=== PATIENT | female | born 1990 | race Caucasian/White ===

== ENCOUNTER 2016-04-07 10:53 | Emergency (ER) | payer MEDICAID ==
--- NOTE | 2016-04-07 11:04 | Emergency Department Record ---
History of Present Illness - General Chief Complaint: Suicidal thoughts Stated Complaint: THOUGHTS OF HURTING HERSELF Time Seen by Provider: 04/07/16 11:03 Source: Patient Mode of Arrival: Ambulatory Limitations: No limitations Travel/Exposure to [place] Within 21 Days of Symptoms: No - History of Present Illness Initial Comments: The patient is here due to feeling depressed and suicidal for the last week. She states she has thought of ways to hurt herself and would like to get help. She denies any overdose, any recent illnesses or injuries. The patient states she has a long hx of depression and used to be on medicine for it. MD Complaint: Feels depressed, Suicidal ideation -: Unknown Associated Psychiatric Symptoms: Suicidal ideation History of same: Yes Quality: Intermittent Improves With: None Worsens With: None Associated Symptoms: Denies other symptoms Treatments Prior to Arrival: None If Self Harm: Admits thoughts of self harm Details of Plan: Wanted to get in car and crash it - Related Data Home Medications Medication Instructions Recorded Confirmed Last Taken No Home Med [NO HOME MEDS] 04/07/16 04/07/16 Unknown Allergies Allergy/AdvReac Type Severity Reaction Status Date / Time Penicillins Allergy HIVES Verified 09/08/15 19:50 Review of Systems Constitutional: Denies: Chills, Fever Eyes: Denies: Eye discharge ENT: Denies: Congestion Respiratory: Denies: Cough, Dyspnea Past Medical History - SOCIAL HISTORY Smoking Status: Current every day smoker Alcohol Use: Occassional Drug Use: None - RESPIRATORY Hx Respiratory Disorders: No - CARDIOVASCULAR Hx Cardio Disorders: No - NEURO Hx Neuro Disorders: No - GI Hx GI Disorders: No - Hx Genitourinary Disorders: No - ENDOCRINE Hx Endocrine Disorders: No - MUSCULOSKELETAL Comment:: Hydrotissuperateva* (skin issue), Dejenerative Disc Disease - PSYCH Hx Psych Problems: Yes Hx Depression: Yes - HEMATOLOGY/ONCOLOGY Hx Hematology/Oncology Disorders: No Family Medical History Any Significant Family History?: Yes Hx Cancer: Mother Hx Diabetes: Grandparents Hx Heart Disease: Grandparents Physical Exam - General General Appearance: Alert, Oriented x3, Cooperative, No acute distress - Head Head exam: Atraumatic, Normocephalic, Normal inspection - Eye Eye exam: Normal appearance, PERRL - ENT Throat exam: Normal inspection. negative: Tonsillar erythema, Tonsillar exudate - Neck Neck exam: Normal inspection, Full ROM. negative: Tenderness - Respiratory Respiratory exam: Normal lung sounds bilaterally. negative: Respiratory distress - Cardiovascular Cardiovascular Exam: Regular rate, Normal rhythm, Normal heart sounds - GI/Abdominal GI/Abdominal exam: Soft, Normal bowel sounds. negative: Tenderness - Extremities Extremities exam: Normal inspection, Full ROM, Normal capillary refill. negative: Tenderness - Neurological Neurological exam: Alert, Normal gait. negative: Abnormal gait, Motor sensory deficit Course Vital Signs 04/07/16 10:59 Pulse Rate 68 Respiratory 20 Rate Blood Pressure 132/76 Pulse Ox 98 - Reevaluation(s) Reevaluation #1: The patient is doing very well and is resting comfortably. She denies any problems or new issues. 04/07/16 12:19 Reevaluation #2: I did discuss the patient with the deputy insurance commissioner at [facility] and she is accepted for transfer. 04/07/16 13:57 Medical Decision Making - Data Complexity MDM Data: Labs Ordered and/or Reviewed - Lab Data Result diagrams: 04/07/16 11:34 04/07/16 11:34 Disposition Disposition: Transfer Clinical Impression: Suicidal ideation Disposition: Acute Care Hospital Transfer Transfer To: [facility] Reason For Transfer: Psych. Accepting Physician: Dr. Badillo Time Discussed w/Accepting Physician: 12:44 Condition: (2) Stable Forms: Patient Portal Access Time of Disposition: 12:45
[2016-04-07 11:36] LABS: BASO % 0.3 % (0-6); EOS % 2.9 % (0-6); GRAN % 62.1 % (47-80); HEMATOCRIT 39.9 % (35.0-47.0); HEMOGLOBIN 13.5 gm/dl (11.6-16.0); LYMPH % 25.3 % (16-45); MEAN CELL VOLUME 91.1 fl (81-97); MEAN CORPUSCULAR HEMOGLOBIN 30.8 pg (27-33); MEAN CORPUSCULAR HGB CONC 33.8 g/dl (32-36); MEAN PLATELET VOLUME 11.3 fl (7.4-10.4); MONO % 9.4 % (0-9); PLATELET COUNT 312 K/uL (130-400); RED BLOOD COUNT 4.38 M/uL (3.80-5.40); WHITE BLOOD COUNT W/O DIFF 9.6 K/uL (4.2-12.2)
[2016-04-07 11:38] LABS: AMPHETAMINE SCREEN URINE NOT DETECTED; BARBITURATE SCREEN URINE NOT DETECTED; BENZODIAZEPINE SCREEN URINE NOT DETECTED; COCAINE SCREEN URINE NOT DETECTED; METHADONE SCREEN URINE NOT DETECTED; METHAMPHETAMINE SCREEN NOT DETECTED; OPIATE SCREEN URINE NOT DETECTED; OXYCODONE SCREEN URINE NOT DETECTED; PHENCYCLIDINE SCREEN URINE NOT DETECTED; PROPOXYPHENE SCREEN URINE NOT DETECTED; THC SCREEN URINE NOT DETECTED; TRICYCLIC ANTIDEPRESSANT SCRN NOT DETECTED
[2016-04-07 11:48] LABS: ALB/GLOB RATIO 1.3 (1.1-1.8); ALKALINE PHOSPHATASE 75 U/L (38-126); ALT/SGPT 30 U/L (9-52); ANION GAP 14.1 (7-16); AST/SGOT 17 U/L (14-36); BLOOD UREA NITROGEN 7 mg/dL (7-17); CARBON DIOXIDE 20.9 mmol/L (22-30); CREATININE 0.7 mg/dL (0.52-1.04); EST GLOMERULAR FILTRATION RATE > 60 ml/min; GLUCOSE,RANDOM 95 mg/dL (70-110); TOTAL PROTEIN 7.1 gm/dL (6.3-8.2)
[2016-04-07 11:49] LABS: ACETAMINOPHEN < 10.0 ug/mL (10.0-30.0); SALICYLATE < 1.0 mg/dL (2.8-20.0)
== END 2016-04-07 14:14 | disposition short-term general hospital (02) ==
LOC: ER 10:53
DX: R45.851 Suicidal ideations (principal); F32.9 Major depressive disorder, single episode, unspecified
CPT/HCPCS: 99285 ×2; 85025; 80053; 81025; G0477; G0480 ×2; 80329

== ENCOUNTER 2016-06-24 07:59 | Emergency (ER) | payer MEDICAID ==
--- NOTE | 2016-06-24 08:16 | Emergency Department Record ---
History of Present Illness - General Chief Complaint: Back Pain/Injury Stated Complaint: BACK PAIN Time Seen by Provider: 06/24/16 08:08 Source: Patient Mode of Arrival: Ambulatory Limitations: Physical limitation - History of Present Illness Initial Comments: 25 yo female presents with back pain that started yesterday. The pain is mostly on the right side. 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 No fever. No trauma. No recent surgery or procedures. No numbness, tingling or changes in bowel or bladder function. She has discomfort with moving or changes in position. No hematuria. The pain radiates to the right buttocks. No pain beyond that. MD Complaint: Back pain Onset/Timin -: Days(s) Similar Symptoms Previously: Yes Place: Home Radiation: Right leg Severity: Mild Severity scale (1-10): 5 Quality: Sharp Consistency: Constant Improves With: None Worsens With: Movement, Other Context: Unknown Associated Symptoms: Denies other symptoms Treatments Prior to Arrival: Acetaminophen - Related Data Home Medications Medication Instructions Recorded Confirmed Last Taken Acetaminophen with Codeine 1 tab PO ASDIR PRN 06/24/16 06/24/16 Unknown [Acetaminophen-Cod #3 Tablet] Clindamycin HCl [Clindamycin HCl] 300 mg PO TID 06/24/16 06/24/16 Unknown Escitalopram Oxalate [Lexapro] 20 mg PO DAILY 06/24/16 06/24/16 Unknown Ibuprofen [Ibuprofen] 800 mg PO Q8H 06/24/16 06/24/16 Unknown Previous Rx's Medication Instructions Recorded Lidocaine Patch [Lidoderm] 1 ea TOP DAILY #7 patch 06/24/16 Methylprednisolone [Medrol Dose 4 mg PO DAILY #1 tab.ds.pk 06/24/16 Pack] Allergies Allergy/AdvReac Type Severity Reaction Status Date / Time Penicillins Allergy HIVES Verified 09/08/15 19:50 Travel Screening - Travel/Exposure Within Last 30 Days Have you traveled within the last 30 days?: No Review of Systems Constitutional: Denies: Chills, Fever, Malaise, Weakness Eyes: Denies: Eye discharge, Eye pain, Photophobia, Vision change ENT: Denies: Congestion, Throat pain Respiratory: Denies: Cough, Dyspnea, Hemoptysis, Stridor, Wheezes Cardiovascular: Denies: Chest pain, Palpitations, Syncope Endocrine: Denies: Fatigue Gastrointestinal: Denies: Abdominal pain, Diarrhea, Nausea, Vomiting Genitourinary: Denies: Dysuria, Incontinence, Retention, Urgency Musculoskeletal: Reports: As per HPI, Back pain. Denies: Neck pain Skin: Denies: Bruising, Change in color, Rash Neurological: Denies: Headache Psychiatric: Denies: Anxiety Hematological/Lymphatic: Denies: Blood Clots, Easy bleeding, Easy bruising, Swollen glands Past Medical History - SOCIAL HISTORY Smoking Status: Current every day smoker Alcohol Use: Rare Drug Use: None - RESPIRATORY Hx Respiratory Disorders: No - CARDIOVASCULAR Hx Cardio Disorders: No - NEURO Hx Neuro Disorders: No - GI Hx GI Disorders: No - Hx Genitourinary Disorders: No - ENDOCRINE Hx Endocrine Disorders: No - MUSCULOSKELETAL Hx Musculoskeletal Disorders: Yes Comment:: Hydrotissuperateva* (skin issue), Dejenerative Disc Disease - PSYCH Hx Psych Problems: Yes Hx Depression: Yes - HEMATOLOGY/ONCOLOGY Hx Hematology/Oncology Disorders: No Family Medical History Any Significant Family History?: Yes Hx Cancer: Mother Hx Diabetes: Grandparents Hx Heart Disease: Grandparents Physical Exam - General General Appearance: Alert, Oriented x3, Cooperative, No acute distress Limitations: No limitations - Head Head exam: Normal inspection - Eye Eye exam: Normal appearance, PERRL. negative: Conjunctival injection, Periorbital swelling - ENT ENT exam: Normal exam Ear exam: Normal external inspection Nasal Exam: Normal inspection Mouth exam: Normal external inspection Teeth exam: Normal inspection Throat exam: Normal inspection - Neck Neck exam: Normal inspection - Respiratory Respiratory exam: Normal lung sounds bilaterally. negative: Respiratory distress - Cardiovascular Cardiovascular Exam: Regular rate, Normal rhythm, Normal heart sounds - GI/Abdominal GI/Abdominal exam: Soft. negative: Distended, Tenderness - Rectal Rectal exam: Deferred - exam: Deferred - Extremities Extremities exam: Normal inspection, Full ROM, Normal capillary refill. negative: Calf tenderness, Pedal edema, Tenderness - Back Back exam: Reports: Normal inspection, Full ROM, Muscle spasm, Paraspinal tenderness (low right), Tenderness. Denies: CVA tenderness (R), CVA tenderness (L), Vertebral tenderness Image of Body Front/Back: 1 - tender to palpation, normal inspection, no rash. no mass - Neurological Neurological exam: Alert, Normal gait, Oriented X3, Reflexes normal (patella +2 bilateral and symmetric, achilles +2 bilateral and symmetric). negative: Altered, Motor sensory deficit - Psychiatric Psychiatric exam: Normal affect, Normal mood - Skin Skin exam: Dry, Intact, Normal color, Warm. negative: Cyanosis, Diaphoretic, Erythema Course Vital Signs 06/24/16 08:02 Temperature 98.3 F Pulse Rate 88 Respiratory 18 Rate Blood Pressure 115/84 Pulse Ox 95 - Reevaluation(s) Reevaluation #1: EMR reviewed 2 prior visits 06/24/16 08:18 Reevaluation #2: Prior XR reviewed from [facility] 11/2015 Mild lumbar degenerative changes with mild narrowing 06/24/16 08:29 Reevaluation #3: MRI 2009 small posterior central right paracentral disc extrusion at L4-5 Degen at L4-5 06/24/16 08:33 Reevaluation #4: DC with instructions for home care, follow up and reasons to return No signs of acute neurologic issues at this time. 06/24/16 08:57 Disposition Disposition: Discharge Clinical Impression: Sciatica of right side Disposition: Home, Self-Care Condition: (1) Good Instructions: Low Back Strain (ED), Sciatica (ED) Additional Instructions: Call your doctor for close follow up and evaluation of your back pain You may require additional referral if not improved (physical therapy) Return if weak, numb, uncontrolled pain, changes in your bowel or bladder function Prescriptions: Lidocaine Patch [Lidoderm] 1 ea TOP DAILY #7 patch Methylprednisolone [Medrol Dose Pack] 4 mg PO DAILY #1 tab.ds.pk Forms: Patient Portal Access Time of Disposition: 08:20
[2016-06-24] MEDS ORDERED: ORPHENADRINE CITRATE 60MG/2ML VIAL IM ONE (08:17)
[2016-06-24] MEDS ORDERED: HYDROCODONE/APAP 7.5/325MG TABLET PO ONE (08:17)
[2016-06-24] MEDS ORDERED: LIDOCAINE 5% PATCH TOP ONE (08:22)
== END 2016-06-24 09:16 | disposition home or self-care (01) ==
LOC: ER 07:59
DX: M51.17 Intervertebral disc disorders with radiculopathy, lumbosacral region (principal)
CPT/HCPCS: 96372; 99283; 99284; J2360

== ENCOUNTER 2017-01-31 17:25 | Emergency (ER) | payer MEDICAID ==
[2017-01-31] MEDS ORDERED: NAPROXEN 250 MG TABLET PO ONE (18:31)
--- NOTE | 2017-01-31 18:35 | Emergency Department Record ---
History of Present Illness - General Chief complaint: Extremity Problem Stated complaint: LT SHOULDER PAIN Time Seen by Provider: 01/31/17 18:30 Source: Patient Mode of Arrival: Ambulatory Limitations: No limitations - History of Present Illness Initial comments: 26 yo female presents to ED for evaluation of left shoulder pain that began 1.5 hours ago. Patient reports that she was carrying a laundry basket when her pain symptoms began, describes the pain as "sharp". Patient denies traumatic injury or dislocation symptoms, denies pain distal to the shoulder, and denies numbness, tingling, or weakness of the hand distally. Patient has not taken anything for pain prior to arrival. MD Complaint: Joint pain Onset/Timin -: Hour(s) Location: Left, Shoulder History of Same: Yes Radiation: Distal Severity scale (1-10): 4 Quality: Sharp Consistency: Constant Improves with: Nothing Worsens with: Nothing Associated Symptoms: Denies other symptoms - Related Data Previous Rx's Medication Instructions Recorded Naproxen [Naprosyn] 500 mg PO Q12H #30 tab 01/31/17 Allergies Allergy/AdvReac Type Severity Reaction Status Date / Time Penicillins Allergy HIVES Verified 09/08/15 19:50 Travel Screening - Travel/Exposure Within Last 30 Days Have you traveled within the last 30 days?: No Review of Systems Constitutional: Denies: Chills, Fever, Malaise, Night sweats Eyes: Denies: Eye discharge, Eye pain ENT: Denies: Congestion, Ear pain, Epistaxis Respiratory: Denies: Cough, Dyspnea Cardiovascular: Denies: Chest pain, Dyspnea on exertion Endocrine: Denies: Fatigue, Heat or cold intolerance Gastrointestinal: Denies: Abdominal pain, Nausea, Vomiting Genitourinary: Denies: Incontinence, Retention Musculoskeletal: Reports: Arthralgia. Denies: Back pain, Gout, Joint swelling Skin: Denies: Bruising, Change in color Neurological: Denies: Abnormal gait, Confusion, Headache, Tingling Psychiatric: Denies: Anxiety Hematological/Lymphatic: Denies: Anemia, Blood Clots Past Medical History - SOCIAL HISTORY Smoking Status: Current every day smoker Alcohol Use: None Drug Use: None - RESPIRATORY Hx Respiratory Disorders: No - CARDIOVASCULAR Hx Cardio Disorders: No - NEURO Hx Neuro Disorders: No - GI Hx GI Disorders: No - Hx Genitourinary Disorders: No - ENDOCRINE Hx Endocrine Disorders: No - MUSCULOSKELETAL Hx Musculoskeletal Disorders: Yes Comment:: Hydrotissuperateva* (skin issue), Dejenerative Disc Disease - PSYCH Hx Psych Problems: Yes Hx Depression: Yes - HEMATOLOGY/ONCOLOGY Hx Hematology/Oncology Disorders: No Family Medical History Any Significant Family History?: Yes Hx Cancer: Mother Hx Diabetes: Grandparents Hx Heart Disease: Grandparents Physical Exam - General General Appearance: Alert, Oriented x3, Cooperative, Mild distress Limitations: No limitations - Head Head exam: Atraumatic, Normocephalic, Normal inspection Head exam detail: negative: Abrasion, Contusion, Weiss's sign, General tenderness, Hematoma, Laceration - Eye Eye exam: Normal appearance. negative: Conjunctival injection, Periorbital swelling, Periorbital tenderness, Scleral icterus - ENT Ear exam: negative: Auricular hematoma, Auricular trauma Nasal Exam: negative: Active bleeding, Discharge, Dried blood, Foreign body Mouth exam: negative: Drooling, Laceration, Muffled voice, Tongue elevation - Neck Neck exam: Normal inspection. negative: Meningismus, Tenderness - Respiratory Respiratory exam: Normal lung sounds bilaterally. negative: Respiratory distress, Rhonchi, Stridor, Wheezes - Cardiovascular Cardiovascular Exam: Regular rate, Normal rhythm, Normal heart sounds - GI/Abdominal GI/Abdominal exam: Soft. negative: Distended, Rebound, Rigid, Tenderness - Rectal Rectal exam: Deferred - exam: Deferred - Extremities Extremities exam: Tenderness, Other (TTP to the anterior/posterior left shoulder on examination, FROM of the elbow, wrist and hand, pain with ROM of the shoulder. No evidence for dislocation, strong distal radial pulse. Care Nurse Rn strenth 5/5 on examination.). negative: Calf tenderness, Pedal edema - Neurological Neurological exam: Alert, Oriented X3. negative: Motor sensory deficit - Psychiatric Psychiatric exam: Normal affect, Normal mood - Skin Skin exam: Normal color. negative: Abrasion Type of lesion: negative: abrasion Course Vital Signs 01/31/17 17:31 Temperature 98.6 F Pulse Rate 85 Respiratory 20 Rate Blood Pressure 127/70 Pulse Ox 98 - Reevaluation(s) Reevaluation #1: 01/31/17 19:17 Left shoulder: No acute abnormality Patient was updated on her radiology results, will place in a sling with instructions to follow-up with her PCP in 5-7 days for further evaluation to determine the need for PT vs. MRI of the shoulder. Patient verbalizes understanding of all instructions and appears stable for discharge at this time. Disposition Disposition: Discharge Clinical Impression: Left shoulder strain Qualifiers: Encounter type: initial encounter Qualified Code(s): S46.912A - Strain of unspecified muscle, fascia and tendon at shoulder and upper arm level, left arm , initial encounter Disposition: Home, Self-Care Condition: (2) Stable Instructions: Shoulder Sprain (ED) Additional Instructions: Return to ED if your symptoms worsen or if you have any concerns. Sling as directed. Naprosyn as directed. Follow-up with your family doctor in 5-7 days for further evaluation of your pain symptoms. Prescriptions: Naproxen [Naprosyn] 500 mg PO Q12H #30 tab.dr Forms: Patient Portal Access Time of Disposition: 19:21 Quality - Quality Measures Quality Measures: N/A - Blood Pressure Screening Does Patient Have Any of the Following: No Blood Pressure Classification: Pre-Hypertensive BP Reading Systolic Measurement: 127 Diastolic Measurement: 70 Screening for High Blood Pressure: < Pre-Hypertensive BP, F/U Documented > [ G8950] Pre-Hypertensive Follow-up Interventions: Referral to alternative/primary care provider.
--- NOTE | 2017-02-02 08:20 | RADIOLOGY REPORT ---
DATE: 01/31/2017 at 1840. EXAM: LEFT SHOULDER, COMPLETE. HISTORY: Left shoulder pain after carrying laundry. TECHNIQUE: Internal and external humerus rotation AP views of the left shoulder are obtained as well as a scapular Y view. COMPARISON: None. ENCOUNTER: Initial. FINDINGS: There is normal bone mineralization. No fracture, dislocation, or destructive bone lesion is seen. The articular relations are maintained. No focal soft tissue abnormality is demonstrated. IMPRESSION: NORMAL LEFT SHOULDER. JOB NUMBER: [id number] [facility]
== END 2017-01-31 19:32 | disposition home or self-care (01) ==
LOC: ER 17:25
DX: S46.912A Strain of unspecified muscle, fascia and tendon at shoulder and upper arm level, left arm, initial encounter (principal); X50.9XXA Other and unspecified overexertion or strenuous movements or postures, initial encounter; Y93.E2 Activity, laundry
CPT/HCPCS: 99283

== ENCOUNTER 2017-12-25 14:00 | Emergency (ER) | payer MEDICAID ==
[2017-12-25] MEDS ORDERED: ACETAMINOPHEN 325 MG TAB PO ONE (14:50)
--- NOTE | 2017-12-25 14:54 | Emergency Department Record ---
History of Present Illness - General Chief Complaint: Dizziness Stated Complaint: SHAKES,HEADACHE,FACE IS JENNIFER Time Seen by Provider: 12/25/17 14:28 Source: Patient Mode of Arrival: Ambulatory Limitations: No limitations - History of Present Illness Initial Comments: The patient is here due to mild dizziness for an hour prior to presenting here at [facility] in the ER. She states she did wake up with a mild posterior head and neck pain that has mildly worsened during the day gradually. Also about an hour ago she felt a tingling sensation over both sides of her face. She denies any visual changes, neck pain with ROM, nausea, vomiting, diarrhea or fevers. The patient has had similar issues with anxiety in the past. The patient did drive here with no difficulty. MD Complaint: Dizziness Onset/Timin -: Hour(s) Timing: Sudden onset Description: Lightheadedness History of Same: No History of Trauma: No Severity: Mild Improves With: Nothing Worsens With: Nothing Associated Symptoms: Other - Fidelia Coma Scale Eye Response: (4) Open spontaneously Motor Response: (6) Obeys commands Verbal Response: (5) Oriented Fidelia Total: 15 - Related Data Home Medications Medication Instructions Recorded Confirmed Last Taken Duloxetine HCl [Cymbalta] 30 mg PO DAILY 12/25/17 12/25/17 Unknown Famotidine 40 mg PO DAILY 12/25/17 12/25/17 Unknown Tizanidine HCl 2 mg PO QHS 12/25/17 12/25/17 Unknown Previous Rx's Medication Instructions Recorded Naproxen [Naprosyn] 250 mg PO BID #14 tablet 12/25/17 Allergies Allergy/AdvReac Type Severity Reaction Status Date / Time Penicillins Allergy HIVES Verified 12/25/17 14:27 Travel Screening - Travel/Exposure Within Last 30 Days Have you traveled within the last 30 days?: No - Travel/Exposure Within Last Year Have you traveled outside the [place] in the last year?: No - Additonal Travel Details Have you been exposed to anyone with a communicable illness?: No - Travel Symptoms Symptom Screening: None Review of Systems Constitutional: Denies: Chills, Fever Eyes: Denies: Eye discharge ENT: Denies: Congestion Respiratory: Denies: Cough, Dyspnea Past Medical History - SOCIAL HISTORY Smoking Status: Current every day smoker Alcohol Use: Rare Drug Use: None - RESPIRATORY Hx Respiratory Disorders: No - CARDIOVASCULAR Hx Cardio Disorders: No - NEURO Hx Neuro Disorders: No - GI Hx GI Disorders: No - Hx Genitourinary Disorders: No - ENDOCRINE Hx Endocrine Disorders: No - MUSCULOSKELETAL Hx Musculoskeletal Disorders: Yes Hx Arthritis: Yes Comment:: Hydrotissuperateva* (skin issue), Dejenerative Disc Disease - PSYCH Hx Psych Problems: Yes Hx Anxiety: Yes Hx Depression: Yes - HEMATOLOGY/ONCOLOGY Hx Hematology/Oncology Disorders: No Family Medical History Any Significant Family History?: Yes Hx Cancer: Mother Hx Diabetes: Grandparents Hx Heart Disease: Grandparents Physical Exam - General General Appearance: Alert, Oriented x3, Cooperative, No acute distress (The patient appears very comfortable while texting on her phone in no distress.) - Head Head exam: Atraumatic, Normocephalic, Normal inspection - Eye Eye exam: Normal appearance, PERRL, EOMI - ENT Throat exam: Normal inspection. negative: Tonsillar erythema, Tonsillar exudate - Neck Neck exam: Normal inspection, Full ROM, Tenderness (Palpation of the superior posterior cervical muscles exactly reproduces the patient's pain.). negative: Meningismus (The neck is very supple.) - Respiratory Respiratory exam: Normal lung sounds bilaterally. negative: Respiratory distress - Cardiovascular Cardiovascular Exam: Regular rate, Normal rhythm, Normal heart sounds - GI/Abdominal GI/Abdominal exam: Soft, Normal bowel sounds. negative: Tenderness - Extremities Extremities exam: Normal inspection, Full ROM, Normal capillary refill. negative: Tenderness - Neurological Neurological exam: Alert, CN II-XII intact, Normal gait, Oriented X3, Reflexes normal, Other (Neg Drift and [place]omberg.). negative: Abnormal gait, Altered, Motor sensory deficit Course Vital Signs 12/25/17 14:17 Temperature 98.3 F Pulse Rate 80 Respiratory 17 Rate Blood Pressure 124/83 Pulse Ox 98 - Reevaluation(s) Reevaluation #1: The patient is doing a lot better at this time. Her RO is MUCH improved and her facial tingling is almost gone. 12/25/17 15:56 Reevaluation #2: The patient is doing a lot better at this time. Her dizziness and bilateral facial tingling sensation have resolved. She is feeling much improved and is ready for home. 12/25/17 16:10 12/25/17 16:13 Medical Decision Making - Data Complexity MDM Data: Labs Ordered and/or Reviewed - Lab Data Result diagrams: 12/25/17 15:00 12/25/17 15:00 Disposition Disposition: Discharge Clinical Impression: Headache Qualifiers: Headache type: unspecified Headache chronicity pattern: unspecified pattern Intractability: not intractable Qualified Code(s): R51 - Headache Disposition: Home, Self-Care Condition: (2) Stable Instructions: Dizziness (ED) Additional Instructions: Please continue your regular medicines and add the Naprosyn for pain. Please see your family doctor for recheck in 2-3 days. Please return to the ER for any worsening symptoms. Prescriptions: Naproxen [Naprosyn] 250 mg PO BID #14 tablet Forms: Patient Portal Access Time of Disposition: 16:12 Quality - Quality Measures Quality Measures: N/A - Blood Pressure Screening View Details: Yes Does Patient Have Any of the Following: No Blood Pressure Classification: Pre-Hypertensive BP Reading Systolic Measurement: 124 Diastolic Measurement: 83 Screening for High Blood Pressure: < Pre-Hypertensive BP, F/U Documented > [ G8950] Pre-Hypertensive Follow-up Interventions: Referral to alternative/primary care provider.
[2017-12-25 15:07] LABS: BASO % 0.4 % (0-6); EOS % 4.1 % (0-6); HEMOGLOBIN 12.4 gm/dl (11.6-16.0); LYMPH % 29.3 % (16-45); MEAN CELL VOLUME 89.4 fl (81-97); MEAN CORPUSCULAR HEMOGLOBIN 29.2 pg (27-33); MEAN CORPUSCULAR HGB CONC 32.6 g/dl (32-36); MEAN PLATELET VOLUME 11.3 fl (7.4-10.4); MONO % 10.2 % (0-9); PLATELET COUNT 349 K/uL (130-400); RED BLOOD COUNT 4.25 M/uL (3.80-5.40); RED CELL DISTRIBUTION WIDTH 14.3 % (11.5-14.5); URINE APPEARANCE CLEAR; URINE BILIRUBIN NEGATIVE (NEGATIVE); URINE BLOOD NEGATIVE (NEGATIVE); URINE COLOR YELLOW; URINE GLUCOSE (UA) NEGATIVE (NEGATIVE); URINE KETONE NEGATIVE (NEGATIVE); URINE LEUKOCYTE ESTERASE TRACE (NEGATIVE); URINE NITRITE NEGATIVE (NEGATIVE); URINE PROTEIN NEGATIVE (NEGATIVE); URINE UROBILINOGEN 0.2 E.U./dL (0.20 - 1.00); WHITE BLOOD COUNT W/O DIFF 11.2 K/uL (4.2-12.2)
[2017-12-25 15:11] LABS: AMPHETAMINE SCREEN URINE NOT DETECTED; BARBITURATE SCREEN URINE NOT DETECTED; BENZODIAZEPINE SCREEN URINE NOT DETECTED; COCAINE SCREEN URINE NOT DETECTED; METHADONE SCREEN URINE NOT DETECTED; METHAMPHETAMINE SCREEN NOT DETECTED; OPIATE SCREEN URINE NOT DETECTED; OXYCODONE SCREEN URINE NOT DETECTED; PHENCYCLIDINE SCREEN URINE NOT DETECTED; PROPOXYPHENE SCREEN URINE NOT DETECTED; THC SCREEN URINE NOT DETECTED; TRICYCLIC ANTIDEPRESSANT SCRN NOT DETECTED
[2017-12-25 15:15] LABS: HCG,QUALITATIVE URINE NEGATIVE (NEGATIVE); URINE RBC NONE SEEN (NONE SEEN); URINE WBC 0 - 2 (0-2/hpf)
[2017-12-25 15:16] LABS: BLOOD UREA NITROGEN 9 mg/dL (6-20); CREATININE 0.6 mg/dL (0.5-0.9); EST GLOMERULAR FILTRATION RATE > 60 mL/min
[2017-12-25 15:17] LABS: TOTAL PROTEIN 6.9 g/dL (6.6-8.7)
[2017-12-25 15:19] LABS: GLUCOSE,RANDOM 78 mg/dL (74-109)
[2017-12-25 15:22] LABS: ALB/GLOB RATIO 1.2 (1.1-1.8); ALBUMIN 3.7 g/dL (4.0-5.0); ALKALINE PHOSPHATASE 73 U/L (35-104); ALT/SGPT 16 U/L (<33); AST/SGOT 13 U/L (10.0-35.0)
[2017-12-25] MEDS ORDERED: KETOROLAC 30 MG/ML VIAL IM ONE (15:29)
== END 2017-12-25 16:20 | disposition home or self-care (01) ==
LOC: ER 14:00
DX: R51 Headache (principal); R20.2 Paresthesia of skin; R42 Dizziness and giddiness; M54.2 Cervicalgia; F17.210 Nicotine dependence, cigarettes, uncomplicated
CPT/HCPCS: 81001; 99283; 96372; 99284; 85025; 80053; 81025; 80305; J1885

== ENCOUNTER 2018-09-04 12:54 | Emergency (ER) | payer MEDICAID ==
--- NOTE | 2018-09-04 13:03 | Emergency Department Record ---
History of Present Illness - General Chief complaint: Extremity Problem Stated complaint: LT WRIST PAIN/HAND NUMBNESS Time Seen by Provider: 09/04/18 12:57 Source: Patient Mode of Arrival: Ambulatory Limitations: No limitations - History of Present Illness Initial comments: 27 yo female presents with left hand pain and some numbness. The onset was Mon. She denies any specific injury but she did start a new job three weeks ago. She also mowed and noticed it after that. She is left handed. No weakness. No history of wrist surgery. No swelling. It spares the 5th finger. No warmth or redness. No abnormal coolness. MD Complaint: Joint pain -: Days(s) Location: Left History of Same: Yes -: Yes Arthralgia, Yes Myalgia Radiation: Distal Quality: Aching Consistency: Constant Improves with: Elevation Worsens with: Palpation, Weight bearing, Other (worse at night) - Related Data Previous Rx's Medication Instructions Recorded Naproxen [Naprosyn] 250 mg PO BID #14 tablet 12/25/17 Allergies Allergy/AdvReac Type Severity Reaction Status Date / Time Penicillins Allergy HIVES Verified 09/04/18 12:59 Review of Systems Constitutional: Denies: Chills, Fever, Malaise, Weakness Eyes: Denies: Eye discharge ENT: Denies: Congestion, Throat pain Respiratory: Denies: Cough Cardiovascular: Denies: Chest pain Endocrine: Denies: Fatigue Gastrointestinal: Denies: Abdominal pain, Diarrhea, Nausea, Vomiting Genitourinary: Denies: Dysuria, Urgency Musculoskeletal: Reports: Arthralgia, Myalgia Skin: Denies: Bruising, Change in color, Rash Neurological: Reports: Numbness, Tingling. Denies: Confusion, Headache, Tremors, Vertigo, Weakness Psychiatric: Denies: Anxiety Hematological/Lymphatic: Denies: Easy bleeding, Easy bruising Past Medical History - SOCIAL HISTORY Smoking Status: Current every day smoker Drug Use: None - RESPIRATORY Hx Respiratory Disorders: No - CARDIOVASCULAR Hx Cardio Disorders: No - NEURO Hx Neuro Disorders: No - GI Hx GI Disorders: No - Hx Genitourinary Disorders: No - ENDOCRINE Hx Endocrine Disorders: No - MUSCULOSKELETAL Hx Musculoskeletal Disorders: Yes Hx Arthritis: Yes Comment:: Hydrotissuperateva* (skin issue), Dejenerative Disc Disease - PSYCH Hx Psych Problems: Yes Hx Anxiety: Yes Hx Depression: Yes - HEMATOLOGY/ONCOLOGY Hx Hematology/Oncology Disorders: No Family Medical History Hx Cancer: Mother Hx Diabetes: Grandparents Hx Heart Disease: Grandparents Physical Exam - General General Appearance: Alert, Oriented x3, Cooperative, No acute distress Limitations: No limitations - Head Head exam: Atraumatic, Normal inspection - Eye Eye exam: Normal appearance. negative: Conjunctival injection - ENT ENT exam: Normal exam Ear exam: Normal external inspection Nasal Exam: Normal inspection Mouth exam: Normal external inspection - Neck Neck exam: Normal inspection - Cardiovascular Cardiovascular Exam: Regular rate, Normal rhythm, Normal heart sounds. negative: Diastolic murmur, Systolic murmur Peripheral Pulses: 2+: Radial (L) - Rectal Rectal exam: Deferred - exam: Deferred - Extremities Extremities exam: Normal inspection, Full ROM, Normal capillary refill, Tenderness (mid hand/distal wrist), Other (pest control worker helper intact, OK sign strength intact, finger abduction intact, wrist flex-ex intact, normal inspection, sensation intact al fingers, warm, pink with brisk CR.) - Neurological Neurological exam: Alert, Oriented X3. negative: Altered, Motor sensory deficit - Psychiatric Psychiatric exam: Normal affect, Normal mood - Skin Skin exam: Dry, Intact, Normal color, Warm Course - Reevaluation(s) Reevaluation #1: 09/04/18 13:05 Normal examination Possible strain or early carpal tunnel We discussed XR was negative, splint, rest, ice, NSAIDS and follow with her PCP in the next week if not resolved 09/04/18 13:37 Disposition Disposition: Discharge Clinical Impression: Wrist strain Disposition: Home, Self-Care Condition: (1) Good Instructions: Paresthesia (ED) Additional Instructions: Call your doctor for the next available follow up appointment in the next week if the symptoms are not resolving Use the splint for support and comfort. Ice 3 times daily for 15 minutes. Review this ER visit and the tests performed with your family doctor Return to the ER for a recheck if worse, any new concerns or questions Take Tylenol or Motrin as directed Forms: Patient Portal Access Time of Disposition: 13:37 Quality - Quality Measures Quality Measures: N/A - Blood Pressure Screening Does Patient Have Any of the Following: No Blood Pressure Classification: Pre-Hypertensive BP Reading Systolic Measurement: 128 Diastolic Measurement: 76 Screening for High Blood Pressure: < Pre-Hypertensive BP, F/U Documented > [G8950] Pre-Hypertensive Follow-up Interventions: Referral to alternative/primary care provider.
== END 2018-09-04 13:40 | disposition home or self-care (01) ==
LOC: ER 12:54
DX: S63.502A Unspecified sprain of left wrist, initial encounter (principal); R20.2 Paresthesia of skin; X50.9XXA Other and unspecified overexertion or strenuous movements or postures, initial encounter; Y93.H9 Activity, other involving exterior property and land maintenance, building and construction; F17.210 Nicotine dependence, cigarettes, uncomplicated
CPT/HCPCS: 99283

== ENCOUNTER 2019-02-14 05:35 | Emergency (ER) | payer MEDICAID ==
--- NOTE | 2019-02-14 05:48 | Emergency Department Record ---
History of Present Illness - General Source: Patient Mode of Arrival: Ambulatory Limitations: No limitations - History of Present Illness Initial Comments: 28 yo female at 22 weeks gestation presents to ED for evaluation of chest pain that began approximately 7 hours ago, worsens with deep inspiration as well as trunk movement. Patient denies fevers, chills, or productive cough symptoms. Patient denies calf pain or swelling symptoms, denies previous history of heart or lung disease. Patient denies health problems at her baseline. Patient has not seen her OB in [place] due to "insurance issues". MD Complaint: Chest pain Onset/Timin -: Hour(s) Pain Location: Left chest Pain Radiation: None Severity: Moderate Quality: Sharp Consistency: Intermittent Improves With: Rest Worsens With: Inspiration, Movement <ROCKY OLIVAS - Last Filed: 02/14/19 06:52> <Manuel Phipps - Last Filed: 02/14/19 08:11> - General Chief Complaint: Chest Pain Stated Complaint: CHEST PAIN Time Seen by Provider: 02/14/19 05:35 - Related Data Allergies Allergy/AdvReac Type Severity Reaction Status Date / Time Penicillins Allergy HIVES Verified 02/14/19 05:51 Review of Systems Constitutional: Denies: Chills, Fever, Malaise, Night sweats Eyes: Denies: Eye discharge, Eye pain ENT: Denies: Congestion, Ear pain, Epistaxis Respiratory: Denies: Cough, Dyspnea Cardiovascular: Reports: Chest pain. Denies: Dyspnea on exertion Endocrine: Denies: Fatigue, Heat or cold intolerance Gastrointestinal: Denies: Abdominal pain, Nausea, Vomiting Genitourinary: Denies: Incontinence, Retention Musculoskeletal: Denies: Arthralgia, Back pain Skin: Denies: Bruising, Change in color Neurological: Denies: Abnormal gait, Confusion, Headache, Seizure Psychiatric: Denies: Anxiety Hematological/Lymphatic: Denies: Anemia, Blood Clots <ROCKY OLIVAS - Last Filed: 02/14/19 06:52> Past Medical History - SOCIAL HISTORY Smoking Status: Current every day smoker Drug Use: None - RESPIRATORY Hx Respiratory Disorders: No - CARDIOVASCULAR Hx Cardio Disorders: No - NEURO Hx Neuro Disorders: No - GI Hx GI Disorders: No - Hx Genitourinary Disorders: No - ENDOCRINE Hx Endocrine Disorders: No - MUSCULOSKELETAL Hx Musculoskeletal Disorders: Yes Hx Arthritis: Yes Comment:: Hydrotissuperateva* (skin issue), Dejenerative Disc Disease - PSYCH Hx Psych Problems: Yes Hx Anxiety: Yes Hx Depression: Yes - HEMATOLOGY/ONCOLOGY Hx Hematology/Oncology Disorders: No <BRENDONROCKY - Last Filed: 02/14/19 06:52> Family Medical History Hx Cancer: Mother Hx Diabetes: Grandparents Hx Heart Disease: Grandparents <BRENDONROCKY - Last Filed: 02/14/19 06:52> Physical Exam - General General Appearance: Alert, Oriented x3, Cooperative, No acute distress Limitations: No limitations - Head Head exam: Atraumatic, Normocephalic, Normal inspection Head exam detail: negative: Abrasion, Contusion, Weiss's sign, General tenderness, Hematoma, Laceration - Eye Eye exam: Normal appearance. negative: Conjunctival injection, Periorbital swelling, Periorbital tenderness, Scleral icterus - ENT Ear exam: negative: Auricular hematoma, Auricular trauma Nasal Exam: negative: Active bleeding, Discharge, Dried blood, Foreign body Mouth exam: negative: Drooling, Laceration, Muffled voice, Tongue elevation - Neck Neck exam: Normal inspection. negative: Meningismus, Tenderness - Respiratory Respiratory exam: Normal lung sounds bilaterally. negative: Rales, Respiratory distress, Rhonchi, Stridor - Cardiovascular Cardiovascular Exam: Regular rate, Normal rhythm, Normal heart sounds - GI/Abdominal GI/Abdominal exam: Soft, Other (Gravid uterus on examination, non-tender on examination.). negative: Rebound, Rigid, Tenderness - Rectal Rectal exam: Deferred - exam: Deferred - Extremities Extremities exam: Normal inspection. negative: Pedal edema, Tenderness - Back Back exam: Denies: CVA tenderness (R), CVA tenderness (L) - Neurological Neurological exam: Alert, Normal gait, Oriented X3 - Psychiatric Psychiatric exam: Normal affect, Normal mood - Skin Skin exam: Normal color. negative: Abrasion Type of lesion: negative: abrasion <ROCKY OLIVAS - Last Filed: 02/14/19 06:52> Course - Reevaluation(s) Reevaluation #1: 02/14/19 05:48 EKG: NSR 90 Normal axis, normal intervals No acute ST-T wave changes are present. Reevaluation #2: 02/14/19 06:06 Case was discussed with the on-call provider for the patient's OB group (Dr. Arroyo), discussed risk and benefits of both nuclear medicine imaging vs. CTA of the chest if the patient's D-Dimer is elevated, Dr. Arroyo recommends CTA for further evaluation. Laboratory studies sent for evaluation. Reevaluation #3: 02/14/19 06:34 Patient was updated on all results thus far including D-Dimer of 0.80. I did discuss in further detail the risk and benefits of performing CT imaging in , consent was obtained following our discussion of these risks to perform CT imaging of the chest to exclude PE or other acute process. Laboratory studies were reviewed and appear grossly unremarkable for an acute process except for the following: WBC 12.9 D-Dimer 0.80 Reevaluation #4: 02/14/19 06:52 Case was discussed with oncoming provider, will assume care and disposition pending CTA results. <ROCKY OLIVAS - Last Filed: 02/14/19 06:52> Vital Signs 02/14/19 02/14/19 06:06 07:55 Pulse Rate [ 82 75 [employer] ] Respiratory 18 20 Rate Blood Pressure 100/62 110/61 [Right Arm] Pulse Ox 99 99 - Reevaluation(s) Reevaluation #5: The patient is doing well at this time. She states her pain is much improved and basically gone at this time unless she twists a certain way. She has no SOB or JORGE A. I did discuss the neg chest CT for PE and the need to take Tylenol and to see her OB doctor next week for recheck. The patient does fully understand the plan. 02/14/19 08:08 <Manuel Phipps - Last Filed: 02/14/19 08:11> Medical Decision Making - Lab Data Result diagrams: 02/14/19 06:00 02/14/19 06:00 <ROCKY OLIVAS - Last Filed: 02/14/19 06:52> - Lab Data Result diagrams: 02/14/19 06:00 02/14/19 06:00 Lab Results 02/14/19 02/14/19 02/14/19 Range/Units 06:00 06:00 06:00 WBC 12.9 H (4.2-12.2) K/uL RBC 3.83 (3.80-5.40) M/uL Hgb 11.4 L (11.6-16.0) gm/dl Hct 34.8 L (35.0-47.0) % MCV 90.9 (81-97) fl MCH 29.7 (27-33) pg MCHC 32.8 (32-36) g/dl RDW 14.5 (11.5-14.5) % Plt Count 285 (130-400) K/uL MPV 11.8 H (7.4-10.4) fl Gran % 68.8 (47-80) % Lymphocytes % 21.8 (16-45) % Monocytes % 7.0 (0-9) % Eosinophils % 2.2 (0-6) % Basophils % 0.2 (0-6) % Absolute Neutrophils 8.89 D-Dimer 0.80 H (0-0.59) mg/L FEU Sodium 137 (136-145) mmol/L Potassium 3.5 (3.4-4.5) mmol/L Chloride 105 (98-107) mmol/L Carbon Dioxide 20.0 L (22-29) mmol/L Anion Gap 12.0 (7-16) BUN 3 L (6-20) mg/dL Creatinine 0.4 L (0.5-0.9) mg/dL Estimated GFR > 60 mL/min Random Glucose 91 (74-109) mg/dL Calcium 8.6 (8.6-10.0) mg/dL Total Bilirubin 0.20 (0.2-1.0) mg/dL AST 11 (10.0-35.0) U/L ALT 16 (<33) U/L Alkaline Phosphatase 107 H (35-104) U/L Troponin T < 0.010 (0-0.010) ng/mL Total Protein 6.6 (6.6-8.7) g/dL Albumin 3.3 L (4.0-5.0) g/dL Globulin 3.3 (1.4-4.8) gm/dL Albumin/Globulin Ratio 1.0 L (1.1-1.8) <Manuel Phipps - Last Filed: 02/14/19 08:11> Disposition Disposition: Discharge Time of Disposition: 06:46 <ROCKY OLIVAS - Last Filed: 02/14/19 06:52> <Manuel Phipps - Last Filed: 02/14/19 08:11> Clinical Impression: Costochondritis Disposition: Home, Self-Care Condition: (2) Stable Instructions: Costochondritis (ED) Additional Instructions: Return to ED if your symptoms worsen or if you have any concerns. Tylenol as directed. Follow-up with your family doctor in 3-5 days as directed. Forms: Patient Portal Access Quality - Quality Measures Quality Measures: N/A - Blood Pressure Screening Does Patient Have Any of the Following: No Blood Pressure Classification: Normal BP Reading Systolic Measurement: 100 Diastolic Measurement: 62 Screening for High Blood Pressure: < Normal BP, F/U Not Required > [G8783] <ROCKY OLIVAS - Last Filed: 02/14/19 06:52> - Quality Measures Quality Measures: N/A - Blood Pressure Screening View Details: Yes Does Patient Have Any of the Following: No Blood Pressure Classification: Normal BP Reading Systolic Measurement: 110 Diastolic Measurement: 61 Screening for High Blood Pressure: < Normal BP, F/U Not Required > [G8783] <Manuel Phipps - Last Filed: 02/14/19 08:11>
[2019-02-14 06:10] LABS: ABSOLUTE NEUTROPHIL COUNT 8.89; BASO % 0.2 % (0-6); EOS % 2.2 % (0-6); GRAN % 68.8 % (47-80); HEMATOCRIT 34.8 % (35.0-47.0); HEMOGLOBIN 11.4 gm/dl (11.6-16.0); LYMPH % 21.8 % (16-45); MEAN CELL VOLUME 90.9 fl (81-97); MEAN CORPUSCULAR HGB CONC 32.8 g/dl (32-36); MEAN PLATELET VOLUME 11.8 fl (7.4-10.4); PLATELET COUNT 285 K/uL (130-400); RED BLOOD COUNT 3.83 M/uL (3.80-5.40); RED CELL DISTRIBUTION WIDTH 14.5 % (11.5-14.5); WHITE BLOOD COUNT W/O DIFF 12.9 K/uL (4.2-12.2)
[2019-02-14 06:14] LABS: MEAN CORPUSCULAR HEMOGLOBIN 29.7 pg (27-33)
[2019-02-14] MEDS ORDERED: 0.9 % SODIUM CHLORIDE 1000ML 1,000 ML IV SCH (06:15)
[2019-02-14 06:24] LABS: BLOOD UREA NITROGEN 3 mg/dL (6-20); CREATININE 0.4 mg/dL (0.5-0.9); EST GLOMERULAR FILTRATION RATE > 60 mL/min; TOTAL PROTEIN 6.6 g/dL (6.6-8.7)
[2019-02-14 06:26] LABS: GLUCOSE,RANDOM 91 mg/dL (74-109)
[2019-02-14 06:29] LABS: ALBUMIN 3.3 g/dL (4.0-5.0); ALKALINE PHOSPHATASE 107 U/L (35-104); ALT/SGPT 16 U/L (<33); AST/SGOT 11 U/L (10.0-35.0)
[2019-02-14] MEDS ORDERED: ACETAMINOPHEN 1,000 MG/100 ML BTL IVPB ONE (06:46)
--- NOTE | 2019-02-14 07:59 | CT ANGIOGRAM REPORT ---
EXAMINATION: CT Angiography of the Thorax EXAM DATE: 02/14/2019 7:49 AM TECHNIQUE: Standard protocol CT angiogram images were obtained through the chest following the admini stration of intravenous contrast. Coronal, axial and sagittal MIP 3-D reformations were performed. IV Contrast: The amount and type of contrast are recorded in the medical record. INDICATION: chest pain, elevated D-Dimer. COMPARISON: 09/08/2015 CT abdomen ENCOUNTER: Initial FINDINGS: Pulmonary Artery: No pulmonary embolism is present. Aorta: No thoracic aortic aneurysm or dissection is present. Heart : There is no pericardial effusion. Radha and Mediastinum: No lymphadenopathy. Calcified right hilar lymph nodes consistent with previous granulomatous disease. Lung Parenchyma: Normal. Central Airways: Normal. Pleural Effusion: None. Upper Abdomen: Gallbladder is present. Musculoskeletal and Chest Wall: Unremarkable. IMPRESSION: Negative exam. No evidence for pulmonary embolic disease. Dictated by: Samuel Bhakta MD on 02/14/2019 7:47 AM. .
== END 2019-02-14 08:13 | disposition home or self-care (01) ==
LOC: ER 05:35
DX: M94.0 Chondrocostal junction syndrome [Tietze] (principal); R79.89 Other specified abnormal findings of blood chemistry; F17.210 Nicotine dependence, cigarettes, uncomplicated; Z33.1 Pregnant state, incidental
CPT/HCPCS: 99284 ×2; 96365; 85025; 80053; 84484; 85379; 71275; Q9967; J7030